=== PATIENT | female | born 1970 | race American Indian/Alaskan Native ===

== ENCOUNTER 2017-07-07 11:57 | Emergency (ER) | payer OTHER ==
[2017-07-07 12:12] VITALS: BP 152/86
--- NOTE | 2017-07-07 16:07 | Emergency Department Report ---
<SNEHA MORRISON - Last Filed: 07/07/17 18:18> ED Extremity Problem HPI - General Chief complaint: Extremity Injury, Lower Stated complaint: LEG CRAMP/SWOLLEN Time Seen by Provider: 07/07/17 16:06 Source: patient, family Mode of arrival: Ambulatory Limitations: No Limitations - History of Present Illness Initial comments: Patient here complaining of pain to her leg that started in her feet. She said the pain is located in her feet, patient says this has been going on for 3 weeks and getting worse. She says she just moved here from [place] and she went to the hospital and they did x-rays on her thighs down to her feet and both side and there were no fractures. She said they also did x-rays at [facility] recently and they did not see any fractures. Patient says that both ER treated for strained muscle. She said that she is not having any pain in her calf. It was mention on triage. For the patient having pain from her left leg and side to calf area. The patient is complaining of pain to both feet that 's radiation of her legs. Pain is 10 out of 10 and tingly. Patient said she was reading something and she thinks this pain from neuropathy to her diabetes. Denies any fever or chills. Denies any trauma. She does not have access to primary care nor does she have any primary care physician. Denies any redness or swelling to lower extremities. Denies any shortness of breath or chest pain. Denies any numbness at present. But she reports tingling achy feeling that is worse with walking and better with rest but she said she has pain at all times. MD Complaint: extremity pain Onset/Timin -: week(s) Location: bilateral lower extremity History of Same: Yes -: No myalgia, Yes arthralgia, No fever, No associated dyspnea, No associated chest pain Radiation: proximal Severity scale (0 -10): 10 Quality: sharp, other (tingling) Consistency: intermittent Improves with: rest Worsens with: walking Associated Symptoms: arthralgias. denies: denies other symptoms, chest pain, shortness of breath, fever, myalgias, rash - Related Data Previous Rx's Medication Instructions Recorded Last Taken Type traMADol [Ultram] 50 mg PO Q6HR PRN #12 tablet 07/07/17 Unknown Rx Allergies Allergy/AdvReac Type Severity Reaction Status Date / Time No Known Allergies Allergy Unverified 07/07/17 12:08 ED Review of Systems ROS: Stated complaint: LEG CRAMP/SWOLLEN Other details as noted in HPI Comment: All other systems reviewed and negative Constitutional: no symptoms reported Eyes: denies: eye pain, vision change Respiratory: no symptoms reported Cardiovascular: denies: chest pain, palpitations, dyspnea on exertion, edema, syncope, paroxysmal nocturnal dyspnea Gastrointestinal: denies: abdominal pain, nausea, vomiting, diarrhea Genitourinary: denies: dysuria, hematuria Musculoskeletal: denies: back pain, joint swelling, arthralgia, myalgia Skin: denies: rash Neurological: paresthesias. denies: headache, weakness, numbness, confusion, abnormal gait, vertigo ED Past Medical Hx - Past Medical History Previous Medical History?: Yes Hx Diabetes: Yes (on by mouth meds) - Surgical History Past Surgical History?: No - Family History Family history: diabetes, hypertension - Social History Smoking Status: Never Smoker Substance Use Type: None - Medications Home Medications: Home Medications Medication Instructions Recorded Confirmed Last Taken Type traMADol [Ultram] 50 mg PO Q6HR PRN #12 tablet 07/07/17 Unknown Rx ED Physical Exam - General Limitations: No Limitations General appearance: alert, in no apparent distress - Head Head exam: Present: atraumatic, normocephalic, normal inspection - Eye Eye exam: Present: normal appearance, PERRL, EOMI Pupils: Present: normal accommodation - ENT ENT exam: Present: normal exam, normal orophraynx, mucous membranes moist - Neck Neck exam: Present: normal inspection, full ROM, other (no C-spine tenderness). Absent: tenderness, meningismus, lymphadenopathy - Respiratory Respiratory exam: Present: normal lung sounds bilaterally. Absent: respiratory distress, chest wall tenderness - Cardiovascular Cardiovascular Exam: Present: regular rate, normal rhythm, normal heart sounds. Absent: systolic murmur, diastolic murmur - GI/Abdominal GI/Abdominal exam: Present: soft, normal bowel sounds. Absent: distended, tenderness, guarding, rebound, rigid, organomegaly, mass, bruit, pulsatile mass , hernia - Extremities Exam Extremities exam: Present: normal inspection, full ROM, normal capillary refill , pedal edema, other (patients with no clubbing or cyanosis. Mild swelling to both feet. No bony tenderness. No neurovascular compromise. No motor or sensory deficit. +2 pulses extremities but both feet are cooler then legs.). Absent: tenderness, joint swelling, calf tenderness - Expanded Lower Extremity Exam Left Hip exam: Present: normal inspection, full ROM, pelvic stability. Absent: tenderness, swelling, abrasion, laceration, ecchymosis, deformity, crepidus, dislocation, erythema, external rotation, internal rotation, shortening Upper Leg exam: Present: normal inspection, full ROM. Absent: tenderness, swelling, abrasion, laceration, ecchymosis, deformity, crepidus, dislocation, erythema Knee exam: Present: normal inspection, full ROM, full knee extension. Absent: tenderness, swelling, abrasion, laceration, ecchymosis, deformity, crepidus, dislocation, erythema, effusion, pain w/ pronation/supination, posterior draw sign, pain/laxity with valgus, pain/laxity with varus Lower Leg exam: Present: normal inspection, full ROM. Absent: tenderness, swelling, abrasion, laceration, ecchymosis, deformity, crepidus, dislocation, erythema, palpable cord, Laron's sign Ankle exam: Present: normal inspection, full ROM. Absent: tenderness, swelling , abrasion, laceration, ecchymosis, deformity, crepidus, dislocation, erythema, anterior draw sign Foot/Toe exam: Present: normal inspection, full ROM, swelling (mild swelling). Absent: tenderness, abrasion, laceration, ecchymosis, deformity, crepidus, dislocation, erythema, amputation, puncture wound, foreign body, calcaneal tenderness, tenderness at base of 5th metatarsal, nail avulsion, subungual hematoma Neuro vascular tendon exam: Present: no vascular compromise. Absent: pulse deficit, abnormal cap refill, motor deficit, sensory deficit, tendon deficit, extremity cold to touch (different temperature when compared to both legs. Slightly cooler than both legs.), pallor, abnormal 2-point discrimination, decreased fine/light touch, foot drop, peroneal nerve deficit, significant pain with passive ROM of distal joint Gait: Positive: observed and normal - Back Exam Back exam: Present: normal inspection, full ROM, other (ambulates without any difficulties). Absent: tenderness, CVA tenderness (R), CVA tenderness (L), muscle spasm, paraspinal tenderness, vertebral tenderness, rash noted - Neurological Exam Neurological exam: Present: alert, oriented X3, normal gait, reflexes normal, other (no focal neurological deficit). Absent: motor sensory deficit - Psychiatric Psychiatric exam: Present: normal affect, normal mood - Skin Skin exam: Present: warm, dry, intact, normal color. Absent: rash ED Course Vital Signs 07/07/17 12:08 Temperature 98.5 F Pulse Rate 86 Respiratory 16 Rate Blood Pressure 152/86 O2 Sat by Pulse 100 Oximetry - Reevaluation(s) Reevaluation #1: 07/07/17 18:35 given Toradol 30 mg IM and Decadron 10 mg IM for relief of pain. ED Medical Decision Making - Lab Data Result diagrams: 07/07/17 16:15 07/07/17 16:15 Lab Results 07/07/17 07/07/17 07/07/17 Range/Units 16:15 16:15 17:17 WBC 8.5 (4.5-11.0) K/mm3 RBC 4.67 (3.65-5.03) M/mm3 Hgb 11.5 (10.1-14.3) gm/dl Hct 35.2 (30.3-42.9) % MCV 75 L (79-97) fl MCH 25 L (28-32) pg MCHC 33 (30-34) % RDW 14.3 (13.2-15.2) % Plt Count 445 H (140-440) K/mm3 Lymph % (Auto) 21.9 (13.4-35.0) % Bradley % (Auto) 6.0 (0.0-7.3) % Eos % (Auto) 1.8 (0.0-4.3) % Baso % (Auto) 0.5 (0.0-1.8) % Lymph # 1.9 (1.2-5.4) K/mm3 Bradley # 0.5 (0.0-0.8) K/mm3 Eos # 0.2 (0.0-0.4) K/mm3 Baso # 0.0 (0.0-0.1) K/mm3 Seg Neutrophils % 69.8 (40.0-70.0) % Seg Neutrophils # 5.9 (1.8-7.7) K/mm3 PT 12.6 (12.2-14.9) Sec. INR 0.90 (0.87-1.13) APTT 28.3 (24.2-36.6) Sec. Sodium 132 L (137-145) mmol/L Potassium 4.5 (3.6-5.0) mmol/L Chloride 96.1 L (98-107) mmol/L Carbon Dioxide 22 (22-30) mmol/L Anion Gap 18 mmol/L BUN 13 (7-17) mg/dL Creatinine 0.6 L (0.7-1.2) mg/dL Estimated GFR > 60 ml/min BUN/Creatinine Ratio 22 % Glucose 146 H (65-100) mg/dL Calcium 8.9 (8.4-10.2) mg/dL - Radiology Data Radiology results: report reviewed Bilateral lower extremity arterial ultrasound without any abnormality. Bilateral lower extremity venous Doppler ultrasound without any SVT or DVT. - Medical Decision Making ED course: Patient had complained of bilateral lower extremity pain specifically to both feet with some swelling and pain radiating proximally to legs. Patient is diabetic and she said her blood sugar is usually in the 140s. She is on oral antidiabetic. Patient said that this started 3 weeks ago and she went to 2 different hospitals [place] of state [place] was at at the time and recently at [facility] and they did x-ray of her lower extremities and did not find anything and told her that she has muscle strain. Physical findings for normal exam lower extremity except patient with variation in temperature to feet comparing to leg. Both feet are cool and in both legs. She also has mild swelling to both feet. I discussed the patient and her radiology reports to include arterial and venous ultrasound and also her lab results. Patient's CBC stable except for slight of the malleus and some values and her chemistry with some slight abnormalities to include sodium of 132. No coagulopathy .Please refer to radiology section for details and ultrasound reports and laboratory section for detail on labs. Less than modification discussed the patient voiced understanding. She does not have a primary care physician so I gave her flier for [facility] and discussed with her that she needs to call tomorrow to schedule appointment for primary care visits to manage her chronic diabetes. I also told her that she'll probably need to be referred to have nerve conduction tests. Patient discharged home in stable condition with prescription for Ultram. Critical care attestation.: If time is entered above; I have spent that time in minutes in the direct care of this critically ill patient, excluding procedure time. ED Disposition Clinical Impression: Bilateral foot pain, Paresthesia of both feet Disposition: DC-01 TO HOME OR SELFCARE Is pt being admited?: No Does the pt Need Aspirin: No Condition: Stable Instructions: Diabetic Foot Care (ED), Meal Planning with Diabetes Exchanges ( DC), Diabetic Neuropathy (ED), Paresthesia (ED), Arthralgia (ED) Additional Instructions: Please follow up with [facility] as discussed. 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
[2017-07-07] MEDS ORDERED: TORADOL IM ONE (16:12)
[2017-07-07] MEDS ORDERED: DECADRON IM ONE (16:12)
[2017-07-07 16:31] LABS: Basophils % (Auto) 0.5 % (0.0-1.8); Eosinophils # (Auto) 0.2 K/mm3 (0.0-0.4); Eosinophils % (Auto) 1.8 % (0.0-4.3); Hematocrit 35.2 % (30.3-42.9); Hemoglobin 11.5 gm/dl (10.1-14.3); Lymphocytes # (Auto) 1.9 K/mm3 (1.2-5.4); Lymphocytes % (Auto) 21.9 % (13.4-35.0); Mean Corpuscular HGB Conc 33 % (30-34); Mean Corpuscular Hemoglobin 25 pg (28-32); Mean Corpuscular Volume 75 fl (79-97); Monocytes # (Auto) 0.5 K/mm3 (0.0-0.8); Platelet Count 445 K/mm3 (140-440); Red Blood Count 4.67 M/mm3 (3.65-5.03); Red Cell Distribution Width 14.3 % (13.2-15.2)
[2017-07-07 16:35] LABS: BUN/Creatinine Ratio 22; Blood Urea Nitrogen 13 mg/dL (7-17); Calcium 8.9 mg/dL (8.4-10.2); Hemolysis Index 0
[2017-07-07 17:51] LABS: INR 0.9 (0.87-1.13)
[2017-07-07 17:52] LABS: Partial Thromboplastin Time 28.3 Sec. (24.2-36.6)
--- NOTE | 2017-07-08 12:46 | Vascular Lab Report ---
LOWER EXTREMITY ARTERIAL DUPLEX: REASON FOR EXAM: Peripheral arterial disease. COMMENTS ON THE RIGHT: Triphasic waveforms are seen proximally. Triphasic waveforms are seen distally. No significant velocity gradients are identified. No significant plaque is identified. Findings are consistent with normal perfusion. Findings are consistent with the ability to heal distal wounds. COMMENTS ON THE LEFT: Triphasic waveforms are seen proximally. Biphasic waveforms are seen distally. No significant velocity gradients are identified. No significant plaque is identified. Findings are consistent with normal perfusion. Findings are consistent with the ability to heal distal wounds. IMPRESSION: RIGHT: Essentially normal arterial flow. LEFT:Essentially normal arterial flow.
== END 2017-07-07 19:00 | disposition home or self-care (01) ==
LOC: EDBD → ED 11:57
DX: M79.672 Pain in left foot (principal); M79.671 Pain in right foot; R20.2 Paresthesia of skin; E11.9 Type 2 diabetes mellitus without complications; Z79.84 Long term (current) use of oral hypoglycemic drugs
CPT/HCPCS: 36415; 80048; 85025; 85610; 85730; 93925; 93970; 96372; 99283; J1100; J1885